=== PATIENT | male | born 1950 | race Caucasian/White ===

== ENCOUNTER 2017-07-13 05:32 | Day surgery (SDC) | payer OTHER, MEDICARE ==
[2017-07-13] MEDS: DEXAMETHASONE 4 MG/ML 1 ML INJ
[2017-07-13] MEDS ORDERED: CEFAZOLIN 1 GM INJ (07:29)
[2017-07-13] MEDS ORDERED: ROCURONIUM 50 MG INJ (07:29)
[2017-07-13] MEDS ORDERED: MIDAZOLAM 1 MG/ML 2 ML INJ (07:29)
[2017-07-13] MEDS ORDERED: FENTAnyl 50 MCG/ML VIAL ×2 (07:29→08:52)
[2017-07-13] MEDS ORDERED: ONDANSETRON 4 MG INJ (07:29)
[2017-07-13] MEDS ORDERED: PROPOFOL 20 ML (07:29)
[2017-07-13] MEDS ORDERED: NEOSTIGMINE 3 MG/3 ML SYRINGE (07:29)
[2017-07-13] MEDS ORDERED: GLYCOPYRROLATE 0.4 MG INJ (07:29)
[2017-07-13] MEDS ORDERED: DEXAMETHASONE 4 MG/ML 1 ML INJ (07:30)
[2017-07-13] MEDS: BUPIVACAINE 0.5% (SDV) 30 ML INJ (08:30)
[2017-07-13] MEDS ORDERED: SUGAMMADEX SODIUM 200 MG/2 ML VIAL IV (08:32)
[2017-07-13] MEDS ORDERED: POVIDONE IODINE 10% 28.4 GM OINT (08:34)
[2017-07-13] MEDS: FENTAnyl 50 MCG/ML VIAL IV (09:01)
[2017-07-13] MEDS ORDERED: HYDROmorphONE (0.2 MG/ML) 10ML SYG IV (09:04)
[2017-07-13] MEDS: HYDROmorphONE (0.2 MG/ML) 10ML SYG IV ×2 (09:08→09:13)
== END 2017-07-13 10:24 | disposition home or self-care (01) ==
LOC: SDS 05:32
DX: M21.612 Bunion of left foot (principal); E11.9 Type 2 diabetes mellitus without complications; I10 Essential (primary) hypertension
CPT/HCPCS: 28296; 82962; 88304; 88311